=== PATIENT | female | born 1955 | race Caucasian/White ===

== ENCOUNTER 2017-04-13 10:15 | Emergency (ER) | payer OTHER ==
[~2017-04-13] VITALS: Ht 165.1 cm; Wt 92.1 kg
[~2017-04-13 10:15] MED LIST: ALDACTONE100 MG PO; ASPIRIN81 M1 PO; AVELOX400 MG PO; Diflucan PO; ENDOCET 5-3251 EACH PO; LANTUS (UNITS)1 UNIT SC; LIPITOR40 MG PO; NOVOLOG (UNITS1 UNIT SC; PRINIVIL20 MG PO; SYNTHROID112 MCG PO
[2017-04-13] MEDS ORDERED: MEDROL DOSEPAK4 MG PO (10:41)
[2017-04-13 11:13] VITALS: BP 137/90
== END 2017-04-13 11:14 | disposition home or self-care (01) ==
LOC: EME 10:15
DX: G51.0 Bell's palsy (principal); I10 Essential (primary) hypertension; E03.9 Hypothyroidism, unspecified; E78.5 Hyperlipidemia, unspecified; E11.9 Type 2 diabetes mellitus without complications; Z79.4 Long term (current) use of insulin; Z79.82 Long term (current) use of aspirin
CPT/HCPCS: 99281; 99284